=== PATIENT | female | born 1950 | race Caucasian/White ===

== ENCOUNTER → 2024-02-01 08:09 | Outpatient (REF) | payer MEDICARE, SELFPAY | LOC: RAD 08:09 | PROVIDERS: ATTENDING PHYSICIAN Physician Assistant | DX: M79.672 Pain in left foot (principal) | CPT/HCPCS: 73630 ==

== ENCOUNTER → 2025-03-26 09:53 | Outpatient (REF) | payer MEDICARE, SELFPAY | LOC: RAD 09:53 | PROVIDERS: ATTENDING PHYSICIAN Physician Assistant | DX: N39.46 Mixed incontinence (principal) | CPT/HCPCS: 76770 ==

== ENCOUNTER 2025-06-29 06:19 | Day surgery (SDC) | payer MEDICARE, SELFPAY | END 2025-06-29 08:20 | disposition home or self-care (01) | LOC: GI 06:19 | PROVIDERS: ATTENDING PHYSICIAN Internal Medicine Gastroenterology; FAMILY PHYSICIAN Physician Assistant | DX: Z12.11 Encounter for screening for malignant neoplasm of colon (principal); K64.8 Other hemorrhoids; K62.89 Other specified diseases of anus and rectum | CPT/HCPCS: G0105 ==